=== PATIENT | female | born 1955 | race Caucasian/White ===

== ENCOUNTER 2016-04-17 09:41 | Emergency (ER) | payer BC ==
[2016-04-17 09:46] VITALS: BP 154/82; PULSE 87; TEMP 98.1; BMI 23.0
[2016-04-17] MEDS ORDERED: ACETAMINOPHEN 325 MG TABLET (FP) PO ONE (11:00)
[2016-04-17] MEDS ORDERED: ACETAMINOPHEN 325 MG TABLET (FP) ONE (11:04)
--- NOTE | 2016-04-17 11:05 | PDOC ---
History of Present Illness - General Chief Complaint: Cold Symptoms Stated Complaint: SOB, COUGH Time Seen by Provider: 04/17/16 10:06 History Source: Patient - History of Present Illness Timing/Duration: reports: other Associated Symptoms: reports: cough, fever/chills, muscle aches. denies: chest pain/soreness, dizziness, earache, headache, lightheadedness, nasal congestion, nasal drainage, shortness of breath, sore throat Past History - Past Medical History Allergies/Adverse Reactions: Allergies Allergy/AdvReac Type Severity Reaction Status Date / Time metoclopramide HCl Allergy Verified 04/17/16 09:46 [From [facility]] Home Medications: Ambulatory Orders Cholecalciferol (Vitamin D3) [Vitamin D3] 50,000 unit PO WEEKLY 04/10/14 Econazole Nitrate 1% [Spectazole 1%] 1 applic TP ASDIR 04/10/14 Insulin Detemir [Levemir Flextouch] 10 unit SQ DAILY 04/10/14 Metformin HCl [Glucophage] 1,000 mg PO BID 04/10/14 Metoprolol Succinate [Toprol XL -] 25 mg PO DAILY 04/10/14 Pravastatin Sodium [Pravachol -] 40 mg PO HS 04/10/14 Glipizide [Glipizide ER] 5 mg PO DAILY #30 tab.[id number] 04/11/14 Anemia: No Asthma: No Cancer: No Cardiac Disorders: No CVA: No COPD: No CHF: No Dementia: No Diabetes: Yes Dialysis: Yes GI Disorders: No Disorders: No HTN: Yes Hypercholesterolemia: Yes Liver Disease: No Seizures: No Thyroid Disease: No - Surgical History Abdominal Surgery: No Appendectomy: No Cardiac Surgery: No Cholecystectomy: No Lung Surgery: No Neurologic Surgery: No Orthopedic Surgery: No - Immunization History Immunization Up to Date: Yes - Psycho/Social/Smoking Cessation Hx Anxiety: No Suicidal Ideation: No Smoking History: Never smoked Have you smoked in the past 12 months: No Information on smoking cessation initiated: No Hx Alcohol Use: No Drug/Substance Use Hx: No Substance Use Type: None Hx Substance Use Treatment: No Review of Systems - Review of Systems Constitutional: Yes: Chills, Fever, Malaise HEENTM: No: Throat Pain Respiratory: Yes: Cough. No: Shortness of Breath, Wheezing Cardiac (ROS): No: Chest Pain ABD/GI: No: Diarrhea, Nausea, Vomiting *Physical Exam - Vital Signs Last Vital Signs Temp Pulse Resp BP Pulse Ox 98.1 F 87 18 154/82 100 04/17/16 09:43 04/17/16 09:43 04/17/16 09:43 04/17/16 09:43 04/17/16 09:43 - Physical Exam General Appearance: Yes: Appropriately Dressed. No: Apparent Distress HEENT: positive: Normal ENT Inspection, Normal Voice. negative: Scleral Icterus (R), Scleral Icterus (L) Neck: positive: Supple. negative: Lymphadenopathy (R), Lymphadenopathy (L) Respiratory/Chest: positive: Lungs Clear, Normal Breath Sounds. negative: Respiratory Distress Cardiovascular: positive: Regular Rate, S1, S2 Integumentary: positive: Dry, Warm Neurologic: positive: Fully Oriented, Alert, Normal Mood/Affect Medical Decision Making - Medical Decision Making 04/17/16 11:02 60-year-old female history of diabetes and hypertension presenting with body aches, VELARDE, cough and subj fever x 2 days. No sob as recorded at triage. Denies sore throat, ear pain, n/v. No sick contacts/recent travel. Not taking anything for sxs. Pt well sherwin and stable w/ unremarkable exam. M/l viral, r/o influenza. Pain control in ED. 04/17/16 11:06 04/17/16 12:16 Inflenza neg. Pt reports some improvement in meds. Dc w/ symptomatic tx *DC/Admit/Observation/Transfer Diagnosis at time of Disposition: Viral syndrome - Discharge Dispostion Disposition: HOME Condition at time of disposition: Good - Patient Instructions Printed Discharge Instructions: DI for Viral Syndrome Additional Instructions: Your flu test was negative. Your symptoms are most likely caused by a non- specific virus. You have no evidence of an infection at this time. Rest, drink plenty of fluids and take Motrin or Tylenol as needed for pain
== END 2016-04-17 12:20 | disposition home or self-care (01) ==
LOC: JERFT 09:41
DX: B34.9 Viral infection, unspecified (principal); I10 Essential (primary) hypertension; E11.9 Type 2 diabetes mellitus without complications; Z79.4 Long term (current) use of insulin; Z79.84 Long term (current) use of oral hypoglycemic drugs; E78.00 Pure hypercholesterolemia, unspecified; Z99.2 Dependence on renal dialysis
CPT/HCPCS: 87804; 99281-25

== ENCOUNTER 2016-05-22 18:08 | Emergency (ER) | payer BC ==
[2016-05-22 18:26] VITALS: BP 148/84; PULSE 88; TEMP 97.8; BMI 23.0
[2016-05-22] MEDS ORDERED: NAPROXEN 375 MG TABLET (FP) PO ONE (19:03)
--- NOTE | 2016-05-22 19:06 | PDOC ---
[id number] 100 05/22/16 18:24 05/22/16 18:24 05/22/16 18:24 05/22/16 18:24 05/22/16 18:24 ED Treatment Course - RADIOLOGY Radiology Studies Ordered: Category Date Time Status HIP & PELVIS-LEFT [RAD] Stat Radiology 05/22/16 19:02 Ordered Progress Note - Progress Note Progress Note: brief triage assessment slipped on the ice today and fell on her left hip, c/o pain with movement and when walking denies other injuries pmh: htn, dm exam with tender left hip, increased pain on rom and external rotation, gait with slight limp other joints all nl assess: hip injury, left naprosyn ordered left hip and pelvis xray ordered inside for further evaluation *DC/Admit/Observation/Transfer Diagnosis at time of Disposition: Arthralgia of hip Qualifiers: Laterality: unspecified laterality Qualified Code(s): M25.559 - Pain in unspecified hip - Discharge Dispostion Disposition: HOME Condition at time of disposition: Stable - Patient Instructions Additional Instructions: PLEASE SEE LOCAL MD NEXT WEEK IF PAIN TO INJURY AREAS CONTINUE;; MOTRIN 400MG FOR PAIN; REST AREA - Post Discharge Activity Work/School Note: Back to Work
--- NOTE | 2016-05-22 19:48 | PDOC ---
History of Present Illness - General Chief Complaint: Injury Stated Complaint: FALL/INJURY Time Seen by Provider: 05/22/16 19:02 History Source: Patient Exam Limitations: No Limitations - History of Present Illness Initial Comments: 05/22/16 19:44 CC PAIN TO LEFT RIBS AND HIP AND PELVIS POST FALL ON ICE TODAY Occurred: reports: just prior to arrival, this morning Severity: reports: moderate Pain Location: reports: lower extremity Method of Injury: Yes: direct blow, fall Past History - Past Medical History Allergies/Adverse Reactions: Allergies Allergy/AdvReac Type Severity Reaction Status Date / Time metoclopramide HCl Allergy Verified 05/22/16 18:23 [From [facility]] Home Medications: Ambulatory Orders Insulin Detemir [Levemir Flextouch] 10 unit SQ DAILY 04/10/14 Metformin HCl [Glucophage] 1,000 mg PO BID 04/10/14 Metoprolol Succinate [Toprol XL -] 25 mg PO DAILY 04/10/14 Pravastatin Sodium [Pravachol -] 40 mg PO HS 04/10/14 Anemia: No Asthma: No Cancer: No Cardiac Disorders: No CVA: No COPD: No CHF: No Dementia: No Diabetes: Yes Dialysis: Yes GI Disorders: No Disorders: No HTN: Yes Hypercholesterolemia: Yes Liver Disease: No Seizures: No Thyroid Disease: No - Surgical History Abdominal Surgery: No Appendectomy: No Cardiac Surgery: No Cholecystectomy: No Lung Surgery: No Neurologic Surgery: No Orthopedic Surgery: No - Immunization History Immunization Up to Date: Yes - Psycho/Social/Smoking Cessation Hx Anxiety: No Suicidal Ideation: No Smoking History: Never smoked Have you smoked in the past 12 months: No Information on smoking cessation initiated: No Hx Alcohol Use: No Drug/Substance Use Hx: No Substance Use Type: None Hx Substance Use Treatment: No Review of Systems - Review of Systems Constitutional: No: Symptoms Reported, Fever, Malaise HEENTM: No: Symptoms Reported Respiratory: No: Symptoms reported, Cough Cardiac (ROS): Yes: Other (TENDER TO LEFT LATER RIBS). No: Symptoms Reported, Chest Pain Musculoskeletal: No: Back Pain, Neck Pain Integumentary: Yes: Bruising. No: Symptoms Reported Neurological: No: Symptoms reported *Physical Exam - Vital Signs Last Vital Signs Temp Pulse Resp BP Pulse Ox 97.8 F 88 18 148/84 100 05/22/16 18:24 05/22/16 18:24 05/22/16 18:24 05/22/16 18:24 05/22/16 18:24 - Physical Exam General Appearance: Yes: Appropriately Dressed. No: Apparent Distress HEENT: positive: TMs Normal, Pharynx Normal Neck: positive: Supple. negative: Tender, Rigid, Tender lateral, Tender midline Respiratory/Chest: positive: Chest Tender (TENDER TO LEFT LATERAL RIBS #6-8; NO DEFORMITY), Lungs Clear ED Treatment Course - Medications Given in the ED: ED Medications Discontinued Medications Generic Name Dose Route Start Last Admin Trade Name Freq PRN Reason Stop Dose Admin Naproxen 375 mg 05/22/16 19:03 05/22/16 19:31 Naprosyn - PO 05/22/16 19:04 375 mg ONCE ONE Administration Medical Decision Making - Medical Decision Making 05/22/16 19:48 XRAYS= NO FX; RIBS NO OBV DEFOMITY, WITH CLEAR LUNGS, NO XRAY; TOLD PT THINGS TO WATCH FOR *DC/Admit/Observation/Transfer Diagnosis at time of Disposition: Contusion of rib on left side Qualifiers: Encounter type: initial encounter Qualified Code(s): S20.212A - Contusion of left front wall of thorax, initial encounter Contusion of left hip and thigh Qualifiers: Encounter type: initial encounter Qualified Code(s): S70.02XA - Contusion of left hip, initial encounter; S70.12XA - Contusion of left thigh, initial encounter - Discharge Dispostion Disposition: HOME Condition at time of disposition: Stable Admit: No - Patient Instructions Additional Instructions: PLEASE SEE LOCAL MD NEXT WEEK IF PAIN TO INJURY AREAS CONTINUE;; MOTRIN 400MG FOR PAIN; REST AREA - Post Discharge Activity Work/School Note: Back to Work
== END 2016-05-22 19:59 | disposition home or self-care (01) ==
LOC: JERFT 18:08
DX: S20.212A Contusion of left front wall of thorax, initial encounter (principal); S70.02XA Contusion of left hip, initial encounter; S70.12XA Contusion of left thigh, initial encounter; W00.0XXA Fall on same level due to ice and snow, initial encounter; Y93.89 Activity, other specified; Y92.89 Other specified places as the place of occurrence of the external cause; I10 Essential (primary) hypertension; E78.00 Pure hypercholesterolemia, unspecified; E11.9 Type 2 diabetes mellitus without complications; Z79.4 Long term (current) use of insulin; Z79.84 Long term (current) use of oral hypoglycemic drugs
CPT/HCPCS: 73523-TC; 99281-25

== ENCOUNTER 2016-11-24 17:43 | Emergency (ER) | payer BC, OTHER ==
[2016-11-24 18:43] VITALS: BP 144/77; PULSE 88; TEMP 98.2; BMI 24.0
--- NOTE | 2016-11-24 18:53 | PDOC ---
History of Present Illness - General Chief Complaint: Back Pain Stated Complaint: BACK PAIN Time Seen by Provider: 11/24/16 18:47 History Source: Patient Exam Limitations: No Limitations - History of Present Illness Initial Comments: 11/24/16 18:48 Patient came to emergency department for evaluation of low back pain primarily right side that radiates through gluteus and to right hip. States onset was a few days ago but is progressively worsened.. Denies fever, upper respiratory symptoms, no cough shortness of breath chest pain or palpitations. No nausea vomiting diarrhea or constipation. Is uncertain as to cause and wonders about urinary tract infection although denies dysuria, frequency or foul-smelling urine. Is diabetic and states blood sugars have been running high as she does not watch diet as closely as she should. Has a 2-year-old granddaughter whom she cares for and wonders about heavy lifting. Occurred: reports: yesterday Severity: reports: mild, moderate Pain Location: reports: back Method of Injury: Yes: unknown Associated Symptoms (Fall): denies symptoms Past History - Travel Traveled outside of the country in the last 30 days: No Close contact w/someone who was outside of country & ill: No - Past Medical History Allergies/Adverse Reactions: Allergies Allergy/AdvReac Type Severity Reaction Status Date / Time metoclopramide HCl Allergy Verified 11/24/16 18:41 [[facility] Home Medications: Ambulatory Orders Insulin Detemir [Levemir Flextouch] 10 unit SQ DAILY 04/10/14 Metformin HCl [Glucophage] 1,000 mg PO BID 04/10/14 Metoprolol Succinate [Toprol XL -] 25 mg PO DAILY 04/10/14 Pravastatin Sodium [Pravachol -] 40 mg PO HS 04/10/14 Cephalexin Monohydrate [Keflex -] 250 mg PO Q6H #28 capsule 07/28/16 Insulin (Levemir) [Levemir Vial] 100 unit SQ ASDIR 07/28/16 Metformin HCl [Metformin HCl ER] 1,000 mg PO ASDIR 07/28/16 Cephalexin Monohydrate [Keflex -] 250 mg PO Q6H #28 capsule 07/30/16 Anemia: No Asthma: No Cancer: No Cardiac Disorders: No CVA: No COPD: No CHF: No Dementia: No Diabetes: Yes Dialysis: Yes GI Disorders: No Disorders: No HTN: Yes Hypercholesterolemia: Yes Liver Disease: No Seizures: No Thyroid Disease: No - Surgical History Abdominal Surgery: Yes Appendectomy: No Cardiac Surgery: No Cholecystectomy: No Lung Surgery: No Neurologic Surgery: No Orthopedic Surgery: No - Immunization History Immunization Up to Date: Yes - Psycho/Social/Smoking Cessation Hx Anxiety: No Suicidal Ideation: No Smoking History: Unknown if ever smoked Have you smoked in the past 12 months: No Hx Alcohol Use: No Drug/Substance Use Hx: No Substance Use Type: None Hx Substance Use Treatment: No Trauma Specific PMHX - Complaint Specific PMHX Back Injury: No Neck Injury: No Review of Systems - Review of Systems Able to Perform ROS?: Yes Is the patient limited Setswana proficient: Yes Constitutional: Yes: Symptoms Reported, See HPI, Loss of Appetite, Malaise. No : Fever HEENTM: Yes: See HPI. No: Symptoms Reported Musculoskeletal: Yes: Symptoms Reported, See HPI, Back Pain, Joint Swelling Integumentary: Yes: See HPI. No: Symptoms Reported All Other Systems: Reviewed and Negative *Physical Exam - Vital Signs Last Vital Signs Temp Pulse Resp BP Pulse Ox 98.2 F 88 18 144/77 98 11/24/16 18:00 11/24/16 18:00 11/24/16 18:00 11/24/16 18:00 11/24/16 18:00 - Physical Exam General Appearance: Yes: Nourished, Appropriately Dressed, Apparent Distress HEENT: positive: PITA, Normal ENT Inspection, TMs Normal, Pharynx Normal Neck: positive: Tender, Supple Respiratory/Chest: positive: Lungs Clear Musculoskeletal: positive: Normal Inspection, Muscle Spasm (tense and palpable spasm noted to the right paravertebral spinous musculature primarily at waist and extending down lumbar paravertebral muscles. Flexion and extension is limited secondary to this tenderness, has no true spine pain crepitus or step- offs. No CVA tenderness). negative: Vertebral Tenderness Integumentary: positive: Normal Color, Dry, Warm. negative: Rash Neurologic: positive: phonograph needle tip maker II-XII NML intact, Fully Oriented, Alert, Normal Mood/ Affect, Normal Response, Motor Strength 5/5 *DC/Admit/Observation/Transfer Diagnosis at time of Disposition: Spasm of back muscles - Discharge Dispostion Disposition: HOME Condition at time of disposition: Stable Admit: No
[2016-11-24 19:05] LABS: URINE APPEARANCE CLEAR; URINE BILIRUBIN NEGATIVE (NEGATIVE); URINE BLOOD 1+ (NEGATIVE); URINE COLOR STRAW; URINE GLUCOSE (UA) 3+ (NEGATIVE); URINE KETONE TRACE (NEGATIVE); URINE LEUK ESTERASE TRACE (NEGATIVE); URINE NITRITE NEGATIVE (NEGATIVE); URINE PROTEIN NEGATIVE (NEGATIVE); URINE UROBILINOGEN NEGATIVE mg/dL (0.2-1.0)
[2016-11-24] MEDS ORDERED: IBUPROFEN 600 MG TABLET (FP) PO ONE ×2 (19:44→19:47)
[2016-11-24 20:04] LABS: URINE MUCUS RARE; URINE RBC <1 /hpf (0-3); URINE WBC 2 /hpf (3-5)
== END 2016-11-24 20:00 | disposition home or self-care (01) ==
LOC: JER 17:43
DX: M62.830 Muscle spasm of back (principal); I10 Essential (primary) hypertension; E78.00 Pure hypercholesterolemia, unspecified; E11.9 Type 2 diabetes mellitus without complications; Z79.4 Long term (current) use of insulin; Z79.84 Long term (current) use of oral hypoglycemic drugs
CPT/HCPCS: 81003; 81015; 99281-25

== ENCOUNTER 2017-07-16 11:17 | Emergency (ER) | payer BC ==
[2017-07-16 11:35] VITALS: BP 142/77; PULSE 88; TEMP 98.4; BMI 23.0
--- NOTE | 2017-07-16 12:41 | PDOC ---
History of Present Illness - General Chief Complaint: Cold Symptoms Stated Complaint: DIZZINESS, COLD SYMPTOMS Time Seen by Provider: 07/16/17 12:17 History Source: Patient Exam Limitations: No Limitations - History of Present Illness Initial Comments: 07/16/17 12:26 This is a 62-year-old woman with past medical history of hypertension and diabetes who presents emergency Department with 4 days of fever, moist cough, posttussive nausea and generalized weakness. Patient states she checked her temperature at home which was 100.4 which gave her cause for concern and is the reason she is seeking care today. She denies chest pain, shortness of breath , headaches, dizziness, abdominal pain vomiting or diarrhea. Past History - Past Medical History Allergies/Adverse Reactions: Allergies Allergy/AdvReac Type Severity Reaction Status Date / Time metoclopramide HCl Allergy Verified 07/16/17 11:32 [From [facility]] Home Medications: Ambulatory Orders Insulin Detemir [Levemir Flextouch] 10 unit SQ DAILY 04/10/14 Metoprolol Succinate [Toprol XL -] 25 mg PO DAILY 04/10/14 Pravastatin Sodium [Pravachol -] 40 mg PO HS 04/10/14 metFORMIN HCL [Glucophage] 1,000 mg PO BID 04/10/14 Insulin (Levemir) [Levemir Vial] 100 unit SQ ASDIR 07/28/16 Metformin HCl [Metformin HCl ER] 1,000 mg PO ASDIR 07/28/16 Anemia: No Asthma: No Cancer: No Cardiac Disorders: No CVA: No COPD: No CHF: No Dementia: No Diabetes: Yes Dialysis: Yes GI Disorders: No Disorders: No HTN: Yes Hypercholesterolemia: Yes Liver Disease: No Seizures: No Thyroid Disease: No - Surgical History Abdominal Surgery: Yes Appendectomy: No Cardiac Surgery: No Cholecystectomy: No Lung Surgery: No Neurologic Surgery: No Orthopedic Surgery: No - Immunization History Immunization Up to Date: Yes - Suicide/Smoking/Psychosocial Hx Smoking History: Unknown if ever smoked Have you smoked in the past 12 months: No Information on smoking cessation initiated: No Hx Alcohol Use: No Drug/Substance Use Hx: No Substance Use Type: None Hx Substance Use Treatment: No Review of Systems - Review of Systems Able to Perform ROS?: Yes Is the patient limited Bahraini proficient: No Constitutional: Yes: See HPI HEENTM: Yes: See HPI Respiratory: Yes: See HPI Cardiac (ROS): No: Symptoms Reported ABD/GI: Yes: See HPI : No: Symptoms Reported Musculoskeletal: No: Symptoms Reported Integumentary: No: Symptoms Reported Neurological: No: Symptoms reported Endocrine: No: Symptoms Reported Hematologic/Lymphatic: No: Symptoms Reported *Physical Exam - Vital Signs Last Vital Signs Temp Pulse Resp BP Pulse Ox 98.4 F 88 18 142/77 100 07/16/17 11:33 07/16/17 11:33 07/16/17 11:33 07/16/17 11:33 07/16/17 11:33 - Physical Exam General Appearance: Yes: Appropriately Dressed. No: Apparent Distress HEENT: positive: Normal ENT Inspection Neck: positive: Trachea midline, Supple Respiratory/Chest: positive: Lungs Clear, Normal Breath Sounds. negative: Respiratory Distress, Accessory Muscle Use Cardiovascular: positive: Regular Rhythm, Regular Rate. negative: Murmur Gastrointestinal/Abdominal: positive: Normal Bowel Sounds, Soft. negative: Tender Musculoskeletal: positive: Normal Inspection. negative: CVA Tenderness Extremity: positive: Normal Inspection. negative: Normal Range of Motion Integumentary: positive: Normal Color, Dry, Warm Neurologic: positive: director of medical review II-XII NML intact, Fully Oriented, Alert, Normal Mood/ Affect, Normal Response, Motor Strength 5/5 ED Treatment Course - RADIOLOGY Radiology Studies Ordered: Category Date Time Status CHEST PA & LAT [RAD] Stat Radiology 07/16/17 12:25 Ordered Medical Decision Making - Medical Decision Making 07/16/17 12:47 A/P: 62-year-old female with history of diabetes and hypertension presents to the emergency room with 4 days of upper respiratory symptoms Respirations even and unlabored Lungs clear to auscultation bilaterally RRR. No murmur, rub or gallop appreciated. Abdomen soft nontender nondistended. Likely upper respiratory illness but given the patient's initial chest x-ray to rule out pneumonia 07/16/17 13:10 X-rays read by Dr. Barragan: No acute pathology. No change of an adverse nature. *DC/Admit/Observation/Transfer Diagnosis at time of Disposition: Viral syndrome - Discharge Dispostion Disposition: HOME Condition at time of disposition: Stable Admit: No - Referrals Referrals: Boyd Jean Baptiste MD [Primary Care Provider] - - Patient Instructions Printed Discharge Instructions: DI for Viral Upper Respiratory Infection -- Adult Additional Instructions: Rest, drink lots of fluids: Teas, water, soups Eat cold things: Ice cream, ice pops, ice chips Saltwater gargles Steamy showers/seem to face break up mucus Avoid contact with others until fevers and pain resolved Lots of handwashing and good hygiene, this is contagious Tylenol or Motrin for fever and pain Followup with private physician in one to 2 days as needed if not improving Return to emergency department for worsened symptoms, fevers, dehydration - Post Discharge Activity Forms/Work/School Notes: Back to Work
== END 2017-07-16 13:19 | disposition home or self-care (01) ==
LOC: JERFT 11:17
DX: J06.9 Acute upper respiratory infection, unspecified (principal); B97.89 Other viral agents as the cause of diseases classified elsewhere; I10 Essential (primary) hypertension; E11.9 Type 2 diabetes mellitus without complications; Z79.4 Long term (current) use of insulin; E78.00 Pure hypercholesterolemia, unspecified
CPT/HCPCS: 71046-TC-FY; 99281-25

== ENCOUNTER 2020-06-12 10:31 | Emergency (ER) | payer BC ==
[2020-06-12 10:39] VITALS: BMI 22.4
[2020-06-12 12:03] VITALS: TEMP 98.7
[2020-06-12 12:25] LABS: VENOUS BASE EXCESS -1.4 mmol/L (-2-2); VENOUS O2 SATURATION 52.3 % (70-80); VENOUS PCO2 47.8 mmHg (38-52); VENOUS PH 7.336 (7.310-7.410)
[2020-06-12 12:29] LABS: BASO % 0.5 % (0-2.0); EOS % 0.2 % (0-4.5); HEMATOCRIT 42.3 % (32.4-45.2); HEMOGLOBIN 14.5 GM/dL (10.7-15.3); MCH 30.2 pg (25.7-33.7); MCHC 34.3 g/dl (32.0-36.0); MEAN PLT VOLUME 7.3 fl (7.5-11.1); MONO % 7.1 % (3.8-10.2); NEUT % 73.2 % (42.8-82.8); PLATELET COUNT 345 K/MM3 (134-434); RDW 12.6 % (11.6-15.6)
[2020-06-12 12:50] LABS: CHLORIDE 102 mmol/L (98-107); POTASSIUM 4.2 mmol/L (3.5-5.1); SODIUM 136 mmol/L (136-145)
[2020-06-12 12:52] LABS: CALCIUM 9.4 mg/dL (8.5-10.1)
[2020-06-12 12:53] LABS: ALBUMIN 4.3 g/dl (3.4-5.0); ANION GAP 7 MMOL/L (8-16); CO2 27 mmol/L (21-32); GLUCOSE,RANDOM 118 mg/dL (74-106)
[2020-06-12 12:56] LABS: CREATININE 0.7 mg/dL (0.55-1.3); SGOT/AST 19 U/L (15-37); SGPT/ALT 22 U/L (13-61)
[2020-06-12 12:58] LABS: BILIRUBIN,TOTAL 0.4 mg/dL (0.2-1); TOT PROT 7.6 g/dl (6.4-8.2)
[2020-06-12 12:59] LABS: ALK PHOS 82 U/L (45-117)
[2020-06-12] MEDS ORDERED: LACTATED RINGERS SOLUTION 1000 ML INFUS.BAG IV ONE (14:00)
[2020-06-12 14:15] VITALS: BP 148/77
[2020-06-15 14:42] VITALS: PULSE 95
== END 2020-06-12 15:40 | disposition home or self-care (01) ==
LOC: JER 10:31
DX: R06.09 Other forms of dyspnea (principal)
CPT/HCPCS: 36415; 71045-TC-FY; 80053; 82550; 82803; 84443; 84484; 85025; 85379; 93005; 93010; 93971-TC; 99285-25; C9803; U0003

== ENCOUNTER 2022-07-22 17:36 | Emergency (ER) | payer BC ==
[2022-07-22 17:52] VITALS: BP 141/74; PULSE 84; RESP 18; TEMP 98.2; BMI 22.6
[2022-07-22] MEDS ORDERED: METHOCARBAMOL 500 MG TABLET PO ONE (19:37)
[2022-07-22] MEDS ORDERED: KETOROLAC TROMETHAMINE 30 MG/1 ML VIAL IM ONE (19:37)
[2022-07-22] MEDS ORDERED: LIDOCAINE 5% TOPICAL PATCH TP ONE (19:37)
[2022-07-22] MEDS ORDERED: METHOCARBAMOL 500 MG TABLET ONE (20:23)
[2022-07-22] MEDS ORDERED: KETOROLAC TROMETHAMINE 30 MG/1 ML VIAL ONE (20:23)
[2022-07-22] MEDS ORDERED: LIDOCAINE 5% TOPICAL PATCH ONE (20:23)
== END 2022-07-22 21:05 | disposition home or self-care (01) ==
LOC: JER 17:36
PROC: 3E0233Z Introduction of Anti-inflammatory into Muscle, Percutaneous Approach (ICD-10-PCS; principal; 2022-07-22)
DX: S76.311A Strain of muscle, fascia and tendon of the posterior muscle group at thigh level, right thigh, initial encounter (principal); M79.651 Pain in right thigh; R51.9 Headache, unspecified; M54.50 Low back pain, unspecified; X50.0XXA Overexertion from strenuous movement or load, initial encounter; Y92.219 Unspecified school as the place of occurrence of the external cause; Y99.0 Civilian activity done for income or pay
CPT/HCPCS: 99284-25

== ENCOUNTER 2023-01-07 19:43 | Emergency (ER) | payer BC ==
[2023-01-07 19:55] VITALS: BP 155/87; PULSE 99; RESP 18; TEMP 98.2; BMI 22.6
[2023-01-07 21:11] LABS: THROAT:GRP A STREP NOT DETECTED (NOTDETECTED)
[2023-01-07] MEDS ORDERED: IBUPROFEN 600 MG TABLET (FP) PO ONE ×2 (22:28→22:39)
== END 2023-01-07 22:42 | disposition home or self-care (01) ==
LOC: JER 19:43
DX: J02.9 Acute pharyngitis, unspecified (principal); R51.9 Headache, unspecified; M79.10 Myalgia, unspecified site; Z20.822 Contact with and (suspected) exposure to COVID-19
CPT/HCPCS: 0241U-QW; 87070; 87651; 99283-25